=== PATIENT | male | born 2000 | race Caucasian/White ===

== ENCOUNTER → 2024-11-24 16:40 | Outpatient (CLI) | payer OTHER, SELFPAY | LOC: RESP 16:41 | PROVIDERS: Referring Provider Student in an Organized Health Care Education/Training Program; Visit Provider Student in an Organized Health Care Education/Training Program | DX: R06.02 Shortness of breath (principal); R05.9 Cough, unspecified; R94.2 Abnormal results of pulmonary function studies | CPT/HCPCS: 94010; 94726; 94729 ==

== ENCOUNTER → 2024-11-26 12:55 | Outpatient (CLI) | payer OTHER, SELFPAY | PROVIDERS: Referring Provider Student in an Organized Health Care Education/Training Program; Visit Provider Student in an Organized Health Care Education/Training Program | DX: R06.02 Shortness of breath (principal); R05.9 Cough, unspecified | CPT/HCPCS: 87116; 87206 ==